=== PATIENT | female | born 1965 | race Caucasian/White ===

== ENCOUNTER 2016-08-09 16:01 | Emergency (ER) | payer OTHER ==
[2016-08-09] MEDS ORDERED: ORPHENADRINE INJ 60 MG/2 ML AMP IM ONE (16:15)
[2016-08-09] MEDS ORDERED: KETOROLAC TROMETHAMINE 60 MG/2 ML (IM) VIAL IM ONE (16:15)
--- NOTE | 2016-08-09 16:17 | PD ---
HPI Chief Complaint: leg pain Time Seen by Provider: 16:07 Travel History International Travel<30 days: No Contact w/Intl Traveler<30days: No History of Present Illness HPI This is a 50-year-old female who presents to the emergency department having had a mechanical fall when she was at work. The rubber sole of her high heeled shoe came off and she twisted her leg. She is reporting moderate severe pain in the back of her left thigh, constant, worse with trying to extend her leg, improved with bending her leg. She's been unable to walk secondary to the injury. She denies hitting her head. [facility] Social History Tobacco Use: No Allergies-Medications (Allergen,Severity, Reaction): Coded Allergies: No Known Allergies (Verified , 08/09/16) Reported Meds & Prescriptions Reported Meds & Active Scripts Active Reported Zyrtec Allergy (Cetirizine HCl) 10 Mg Cap 10 Mg PO DAILY Atorvastatin (Atorvastatin Calcium) 10 Mg Tab 10 Mg PO HS Synthroid (Levothyroxine Sodium) 75 Mcg Tab Mcg PO DAILY Review of Systems Except as stated in HPI: all other systems reviewed are Neg Physical Exam Narrative GENERAL: SKIN: Warm and dry. HEAD: Atraumatic. Normocephalic. EYES: Pupils equal and round. No scleral icterus. No injection or drainage. ENT: No nasal bleeding or discharge. Mucous membranes pink and moist. NECK: Trachea midline. CARDIOVASCULAR: Regular rate and rhythm. 2+ left d.p. pulse with normal capillary refill in the left lower extremities. RESPIRATORY: No accessory muscle use. Clear to auscultation. Breath sounds equal bilaterally. GASTROINTESTINAL: Abdomen soft, non-tender, nondistended. MUSCULOSKELETAL: Extremities without clubbing, cyanosis, or edema. No obvious deformities. Tender to palpation along the left posterior thigh, with pain with extension at the left knee. No focal tenderness over the knee itself, no pain with flexion or extension of the hip. No focal tenderness of the lower lumbar vertebrae. NEUROLOGICAL: Awake and alert. No obvious cranial nerve deficits. Moving all extremities. Sensation is intact in the bilateral lower extremities. PSYCHIATRIC: Appropriate mood and affect; insight and judgment normal. Data Data Last Documented VS Vital Signs Date Time Temp Pulse Resp B/P Pulse Ox O2 Delivery O2 Flow Rate FiO2 08/09/16 16:41 98.6 89 16 147/67 99 Orders Ketorolac Inj (Toradol Inj) (08/09/16 16:15) Orphenadrine Inj (Norflex Inj) (08/09/16 16:15) MDM Medical Decision Making Medical Screen Exam Complete: Yes Emergency Medical Condition: Yes Interpretation(s) Afebrile, no tachycardia, hypertensive Differential Diagnosis Muscle strain, muscle sprain, contusion Narrative Course This is a 50-year-old female who presents to the emergency department having twisted her leg when she fell off of a high heel. She has a lot of pain in the posterior thigh over the hamstrings. She has a normal neurovascular exam. She has no evidence of acute fracture. I suspect the patient has a muscle strain. She is advised follow-up with orthopedics in 1 week if she is not improved. She feels much better after anti-inflammatory and muscle relaxer. Diagnosis Primary Impression: Left hamstring muscle strain Qualified Code: S76.312A - Left hamstring muscle strain, initial encounter Referrals: Faustino Ko MD Additional Instructions: If you develop numbness, weakness, severe pain or inability to walk return to the emergency room. Rest and elevate your leg and take anti-inflammatories as prescribed. Follow-up with orthopedics in one week if your not improved. Med/Other Pt SpecificInfo: Prescription(s) given Scripts Cyclobenzaprine (Flexeril)10 Mg Tab10 Mg PO TID #10 TAB Ref 0 Prov:Meli Herrmann MD 08/09/16 Naproxen 500 Mg [id number] Mg PO BID PRN (PAIN SCALE 4 TO 10) #20 TAB Prov:Meli Herrmann MD 08/09/16 Disposition: 01 DISCHARGE HOME Condition: Stable Meli Herrmann MD Aug 09, 2016 16:17
[2016-08-09] MEDS ORDERED: ZYRT10CA PO (16:27)
[2016-08-09] MEDS ORDERED: ATOR10TA15 PO (16:27)
[2016-08-09] MEDS ORDERED: LEVO.075 PO (16:27)
[2016-08-09 16:41] VITALS: BP 147/67; PULSE 89; RESP 16; TEMP 98.6; O2SAT 99
[2016-08-09] MEDS ORDERED: CYCL1TAB29 PO (16:57)
[2016-08-09] MEDS ORDERED: NAPR500T PO (16:57)
--- NOTE | 2016-08-09 18:11 | PD ---
Physical Exam Narrative I was informed by my nurse the patient has a lot of pain and unable to ambulate on the left leg. Data Data Last Documented VS Vital Signs Date Time Temp Pulse Resp B/P Pulse Ox O2 Delivery O2 Flow Rate FiO2 08/09/16 18:21 78 16 143/83 97 08/09/16 16:41 98.6 Orders Ketorolac Inj (Toradol Inj) (08/09/16 16:15) Orphenadrine Inj (Norflex Inj) (08/09/16 16:15) Femur (Ap & Lat/2vws) (08/09/16 18:09) Acetamin-Hydrocod 325-5 Mg ([place]me 5-325 (08/09/16 18:15) MDM Supervised Visit with JAYANT: No Interpretation(s) 1900 p.m. X-ray left femur shows no acute bony injury. Differential Diagnosis Differential diagnosis including muscular tear, muscle spasm, sprain, fracture, dislocation. Narrative Course 50-year-old female with severe pain posterior left thigh area. Status post fall. Patient was given IM injection of Toradol and Norflex. Lortab 5/325, one tablet by mouth given. Diagnosis Primary Impression: Left hamstring muscle strain Qualified Code: S76.312A - Left hamstring muscle strain, initial encounter Referrals: Faustino Ko MD Patient Instructions: General Instructions Departure Forms: Tests/Procedures Additional Instruction: If you develop numbness, weakness, severe pain or inability to walk return to the emergency room. Rest and elevate your leg and take anti-inflammatories as prescribed. Follow-up with orthopedics in one week if your not improved. Scripts Hydrocodone-Acetaminophen ([place]me)5-325 mg Tab1 Tab PO Q6H PRN (PAIN) #30 TAB Prov:Jacob Bear MD 08/09/16 Cyclobenzaprine (Flexeril)10 Mg Tab10 Mg PO TID #10 TAB Ref 0 Prov:Meli Herrmann MD 08/09/16 Naproxen 500 Mg [id number] Mg PO BID PRN (PAIN SCALE 4 TO 10) #20 TAB Prov:Meli Herrmann MD 08/09/16 Disposition: 01 DISCHARGE HOME Condition: Stable Jacob Bear MD Aug 09, 2016 18:11
[2016-08-09] MEDS ORDERED: ACETAMINOPHEN/HYDROcodone 325 MG/5 MG TAB PO ONE (18:15)
[2016-08-09 18:21] VITALS: BP 143/83; PULSE 78; RESP 16; O2SAT 97
--- NOTE | 2016-08-09 18:57 | RADRPT ---
EXAM DATE/TIME: 08/09/2016 18:31 [facility] COMPARISON: No previous studies available for comparison. INDICATIONS : Left femur pain, slip and fall today. MEDICAL HISTORY : None. SURGICAL HISTORY : None. ENCOUNTER: Initial ACUITY: 1 day PAIN SCORE: 10/10 LOCATION: Left femur. FINDINGS: Two view examination of the left femur demonstrates no evidence of fracture or dislocation. Bony min eralization is normal. The soft tissue structures are intact. CONCLUSION: Intact, normal appearing left femur. Jean Abel MD on August 09, 2016 at 18:55 Board Certified Radiologist. This report was verified electronically.
[2016-08-09] MEDS ORDERED: NORC5TAB PO (19:02)
== END 2016-08-09 19:40 | disposition home or self-care (01) ==
LOC: NEPD 16:01
DX: S76.312A Strain of muscle, fascia and tendon of the posterior muscle group at thigh level, left thigh, initial encounter (principal); W01.0XXA Fall on same level from slipping, tripping and stumbling without subsequent striking against object, initial encounter
CPT/HCPCS: 73552; 96372; 96374; 99283; J1885; J2360